=== PATIENT | female | born 1985 | race Caucasian/White ===

== ENCOUNTER 2017-11-30 16:30 | Emergency (ER) | payer OTHER ==
[2017-11-30 17:49] VITALS: BP 122/88
--- NOTE | 2017-11-30 18:25 | RAD ---
INDICATION: RIGHT elbow pain post fall. COMPARISON: No relevant prior exams available on the [facility] for comparison. TECHNIQUE: AP, lateral, and oblique views RIGHT elbow. REPORT AND IMPRESSION: #. Normal articular alignment and preserved joint spaces. Negative for joint effusion. No cortical disruption or suspicious trabecular irregularity to suggest fracture. Mild dorsal soft tissue swelling at the proximal forearm. .
--- NOTE | 2017-11-30 18:27 | UC ---
Elbow Pain - HPI Summary HPI Summary: Pt reports that she was on a hover board today at ~ 12:30 and fell onto right elbow with elbow bent at 90 degree angle - History of Current Complaint Chief Complaint: UCUpperExtremity Stated Complaint: RT ELBOW INJURY Time Seen by Provider: 11/30/17 18:00 Hx Obtained From: Patient ?: No Onset/Duration: Traumatic - fell from height of 4 inches from standing position Severity Initially: Severe Severity Currently: Moderate Pain Intensity: 9 Location Of Pain: Is Discrete @ - right elbow Character: Dull, Aching Aggravating Factor(s): Movement Alleviating Factor(s): Rest, Ice Associated Signs And Symptoms: Positive: Swelling, Bruising - Allergies/Home Medications Allergies/Adverse Reactions: Allergies Allergy/AdvReac Type Severity Reaction Status Date / Time No Known Allergies Allergy Verified 06/02/15 10:12 Home Medications: Home Medications Escitalopram Oxalate [Lexapro] 5 mg PO DAILY 11/30/17 [History Confirmed ] PMH/Surg Hx/FS Hx/Imm Hx Previously Healthy: Yes - Surgical History Surgical History: Yes Surgery Procedure, Year, and Place: 2007 TONSILLECTOMY, [place]. 2007 WISDOM TEETH EXTRACTION, [place]. 2012 [place] RIGHT FEMUR, [place] R/T [facility], [facility]. 03/2015 RIGHT ANKLE ORIF, [facility] - Family History Known Family History: Positive: Cardiac Disease - Social History Occupation: Employed Full-time Lives: With Family Alcohol Use: Rare Alcohol Amount: 1-2 Q3-4 MONTHS Substance Use Type: None Smoking Status (MU): Heavy Every Day Tobacco Smoker Type: Cigarettes Amount Used/How Often: 1 PPD Length of Time of Smoking/Using Tobacco: 10 YEARS Have You Smoked in the Last Year: No When Did the Patient Quit Smoking/Using Tobacco: 2013 Review of Systems Constitutional: Negative Skin: Bruising Eyes: Negative ENT: Negative Respiratory: Negative Cardiovascular: Negative Gastrointestinal: Negative Genitourinary: Negative Motor: Decreased ROM - right elbow Neurovascular: Negative Musculoskeletal: Arthralgia, Myalgia - right elbow Neurological: Negative Psychological: Negative Is Patient Immunocompromised?: No All Other Systems Reviewed And Are Negative: Yes Physical Exam Triage Information Reviewed: Yes Appearance: Well-Appearing Vital Signs: Initial Vital Signs Temp 98.8 F 11/30/17 17:43 Pulse 110 11/30/17 17:43 Resp 16 07/11/18 17:43 BP 122/88 11/30/17 17:43 Pulse Ox 99 11/30/17 17:43 Vital Signs Reviewed: Yes Eye Exam: Normal ENT Exam: Normal Neck exam: Normal Respiratory: Positive: No respiratory distress Musculoskeletal Exam: Other Musculoskeletal: Positive: ROM Limited @ - right elbow Neurological Exam: Normal Psychological Exam: Normal Skin Exam: Other - scattered bruises on right forearm and elbow Diagnostics - Radiology No standard instances Radiology Interpretation Completed By: Radiologist - REPORT AND IMPRESSION: #. Normal articular alignment and preserved joint spaces. Negative for joint effusion. No cortical disruption or suspicious trabecular irregularity to suggest fracture. Mild dorsal soft tissue swelling at the proximal forearm. Elbow Pain Course/Dx - Differential Dx/Diagnosis Differential Diagnosis/HQI/PQRI: Contusion, Fracture (Closed) Provider Diagnoses: right elbow contusion Discharge - Sign-Out/Discharge Documenting (check all that apply): Patient Departure - Discharge Plan Condition: Stable Disposition: HOME Patient Education Materials: Contusion in Adults (ED) Referrals: Kemal ARRIAGA,Linette Rubio [Primary Care Provider] - If Needed Tom Beavers MD [Medical Doctor] - If Needed - Billing Disposition and Condition Condition: STABLE Disposition: Home
== END 2017-11-30 18:33 | disposition home or self-care (01) ==
LOC: UCCORT 16:30
DX: S50.01XA Contusion of right elbow, initial encounter (principal); S50.11XA Contusion of right forearm, initial encounter; W17.89XA Other fall from one level to another, initial encounter; Y93.89 Activity, other specified; Y92.9 Unspecified place or not applicable; Z82.49 Family history of ischemic heart disease and other diseases of the circulatory system; F17.210 Nicotine dependence, cigarettes, uncomplicated
CPT/HCPCS: 99212; G0463

== ENCOUNTER 2019-03-31 09:05 | Emergency (ER) | payer OTHER ==
--- OUTSIDE RECORDS SUMMARY | 2019-03-31 09:11 | XMS REPORT | Continuity of Care Document ---
:1985 External Reference #:[id number] Author Name Linette Sommer MD Address [address] [place] [id number] Problems Description No Active Problems Social History Type Date Description Comments Sex Unknown Tobacco Use Start: Unknown currently smokes 1/2 Pack Daily ETOH Use Occasionally consumes alcohol Recreational Drug Use Formerly used Marijuana sporadically Allergies, Adverse Reactions, Alerts Description No Known Drug Allergies Medications Active Medications SIG Qnty Indications Ordering Date Provider Cefuroxime Axetil 1 by mouth twice 20tabs Linette Sommer 03/30/2019 250mg a day MD Leslye Tablets Albuterol Sulfate 1 as directed as 75ml Linette Sommer 10/10/2018 directed richard Gavin MD (2.5mg/3ML) 0.083% q4hr as needed Nebulizer sob or wheezing Sertraline HCL 1 tablet by mouth 90tabs F43.23 Linette Sommer 02/24/2017 50mg every night at MD Leslye Tablets bedtime Alprazolam 1/2 - 1 tab by 45tabs F43.23 Linette Sommer 02/24/2017 0.5mg Tablets mouth three times MD Leslye a day as needed anxiety Ventolin HFA inhale two puffs 1units Linette Sommer 06/20/2015 108(90Base) by mouth every MD Leslye mcg/Act Aerosol four hours as needed Acidophilus 1 tab po bid Unknown Lactobacillus 10Bu/GM Powder Immunizations CPT Code Status Date Vaccine Lot # [id number] Given 04/07/2017 Influenza Vac, Quadrivalent, Split, 0.5mL Dosage, [id number] Im Use 06285 Given 02/28/2015 Influenza Vac, Quadrivalent, Split, 0.5mL Dosage, [id number] Im Use 30513 Given 09/07/2012 Tdap (Adacel) Ages 7 And Above Only [id number] Given 04/29/2009 Influenza Virus Vaccine Pandemic Formulation - [id number] Given 04/29/2009 Afluria Or Fluvirin Flu Vac Intramuscular [id number] 12931 Given 04/29/2009 Administration Swine Flu Vaccine [id number] Vital Signs Date Vital Result Comment 03/30/2019 11:50am Body Temperature 97.5 F Weight 114.00 lb Heart Rate 92 /min BP Systolic 96 mmHg BP Diastolic 54 mmHg 12/25/2018 10:31am Body Temperature 98.0 F Weight 124.00 lb Heart Rate 94 /min BP Systolic 110 mmHg BP Diastolic 78 mmHg Results Test Acquired Date Facility Test Result H/L Range Note Laboratory test 03/30/2019 [facility] <pending> finding Culture Laboratory test 02/01/2019 [facility] Urine HCG NEGATIVE Negative 1, 2 finding (315)- - (Qualitativ e) CBS W/Automated 12/21/2018 [facility] White Blood 8.5 K/ uL Normal 3.1-10.7 3 Diff (315)- - Count Red Blood Count 4.25 M/uL Normal 3.90-5.40 Hemoglobin 13.7 gm/dL Normal 11.6-15.8 Hematocrit 39.5 % Normal 36.0-46.1 Mean Cell Volume 92.9 fl Normal 80.9-99.0 Mean Corpuscular HGB 32.2 pg Normal 25.9-32.7 Mean Corpuscular HGB Conc 34.7 g/dL High 30.8-34.3 Platelet Count 283 K/uL Normal 155-360 Red Cell Distri Width SD 42.4 fl Normal 36-47 Red Cell Distri Width %CV 12.3 % Normal 11.7-14.4 Mean Platelet Volume 9.1 fl Normal 8.9-12.4 Neut% 59.4 % Normal 40.4-72.8 Lymph % 30.9 % Normal 20.0-42.0 [place] % 5.9 % Normal 4.3-13.2 Eo% 2.8 % Normal 0.0-6.6 Bas% 0.6 % Normal 0.0-1.1 Immature Grans 0.4 % Normal 0.0-5.0 NRBC % 0.0 /100WBC < 10/ 100 WBC Neut# 5.05 K/uL Normal 1.8-7.0 Lymph # 2.63 K/uL Normal 1.0-4.0 [place] # 0.50 K/uL Normal 0.3-0.9 Eos # 0.24 K/uL Normal 0.0-0.5 Baso # 0.05 K/uL Normal 0.0-0.1 Immature Grans Absolute 0.03 K/uL NRBC # 0.00 K/uL Ua RFX Micro & 12/21/2018 [facility] Urine Color YELLOW Yellow Culture II (315)- - Urine Clarity CLEAR Clear Urine Glucose - Dipstick NEGATIVE mg/dL Negative Urine Bilirubin - Dipstick NEGATIVE Negative Urine Ketone NEGATIVE mg/dL Negative Urine Specific Welch 1.025 Normal 1.010-1.030 Urine Blood NEGATIVE Negative Urine PH 5.5 Low 6.5-7.5 Urine Protein - Dipstick NEGATIVE mg/dL Negative Urine Urobilinogen - Dipstick 0.2 E.U./dL Normal 0.2-1.0 Urine Nitrite - Dipstick NEGATIVE Negative Urine Leuk Esterase NEGATIVE Negative Source: URINE, CLEAN CAT <SEE NOTE> 4 CBC with Auto Diff-fcmg 12/20/2018 [facility] WBC 7.5 10*3/uL (4.1- 11.0) [phone] RBC 4.59 10*6/uL (4.00-5.40) HGB 14.5 g/dL (12.0-16.0) HCT 42.3 % (36.0-47.0) MCV 92.1 fL (80.0-95.0) MCH 31.6 pg (27.0-32.0) MCHC 34.3 g/dL (32.0-36.0) RDW 12.5 % (10.5-14.5) PLT 315 10*3/uL (150-450) MPV 8.1 fL (7.1-10.7) Neut % 41.6 % (35.0-75.0) Lymph % 45.1 % (16.0-52.0) [place] % 7.8 % (0.0-8.0) Eos % 4.6 % (0.0-5.0) Baso % 0.9 % (0.0-4.0) Neut # 3.1 10*3/uL (1.8-7.7) Lymph # 3.4 10*3/uL (1.2-4.8) [place] # 0.6 10*3/uL (0.0-0.8) Eos # 0.3 10*3/uL (0.0-0.5) Baso # 0.1 10*3/uL (0.0-0.2) Lyme Igm/Igg AB -RL 09/28/2018 [facility] Lyme Igm/Igg AB @ NEGATIVE (Neg) 5 1 CONSULT 01/18/19 1230 2 FIRST MORNING SPECIMENS GENERALLY CONTAIN THE HIGHEST CONCENTRATION OF HCG AND ARE RECOMMENDED FOR EARLY DETECTION OF . Method: Quidel QuickVue One-Step Immunoassay 3 POSS APPENDICITIS 4 URINE, CLEAN CATCH 5 A Negative serologic test for Lyme Disease indicates no serologic evidence of infection with B burgdorferi at the time this specimen was collected. A repeat specimen should be collected in 2 to 4 weeks if clinically indicated. Unless otherwise specified, testing performed by [facility] [address] [place] [address] Procedures Description No Information Available Medical Devices Description No Information Available Encounters Type Date Location Provider Dx Diagnosis Office Visit 12/25/[address] K80.11 Calculus of 10:00a MD Leslye gallbladder w chronic cholecyst w obstruction Office Visit 12/20/[address] F43.23 Adjustment disorder 3:45p MD Leslye with mixed anxiety and depressed mood R10.31 RIGHT lower quadrant pain Office Visit 09/28/2018 9:45a Linette Galeana DR, G40.89 Other seizures Assessments Date Code Description Provider 03/30/2019 J02.9 Acute pharyngitis, unspecified Linette Sommer MD 03/30/2019 R63.4 Abnormal weight loss Linette Sommer MD 12/25/2018 K80.11 Calculus of gallbladder with chronic Linette Somemr MD cholecystitis with obstruction 12/20/2018 F43.23 Adjustment disorder with mixed anxiety and Linette Sommer MD depressed mood 12/20/2018 R10.31 RIGHT lower quadrant pain Linette Sommer MD 09/28/2018 G40.89 Other seizures Linette Sommer MD Plan of Treatment Future Appointment(s):05/02/2019 11:15 am - Linette Sommer MD at [facility]03/30/2019 - Linette Sommer MDJ02.9 Acute pharyngitis, unspecifiedComments :Rapid strep is negative. Patient to start the prescribed antibiotics. Patient to have the throat culture done to further evaluate her symptoms. Call if symptoms are worsening or not improving over thenext 3-4 days or not completely better in 1 week. Tylenol as needed for pain. Rest and push couhydA15.4 Abnormal weight lossComments:she is still loosing weight since her cholecystectomy. I am concerned. Prior urine drug screen was unremarkable. She denies anorexia/bulimia. Will recheck in 1 monthAllNew Medication: Cefuroxime Axetil 250 mg - 1 by mouth twice a day Functional Status Description No Information Available Mental Status Description No Information Available Referrals Refer to Reason for Referral Status Appt Date Jannette Rain, PHD Scheduled 01/23/[address] [place] [id number]
--- OUTSIDE RECORDS SUMMARY | 2019-03-31 09:11 | XMS REPORT | Continuity of Care Document ---
:1985 External Reference #:[id number] Author Name Nehemiah Cortez MD,FACS Address [address] [place] [id number] Care Team Providers Name Role Phone Linette Sommer MD - Family Medicine Care Team Information Professor Of Literature Problems Active Problems Provider Date Gallbladder calculus with acute Nehemiah Cortez MD,FACS Onset: 02/09/2019 cholecystitis and no obstruction Gallbladder and bile duct calculi Nehemiah Cortez MD,FACS Onset: 01/09/2019 Social History Type Date Description Comments Sex Unknown Tobacco Use Start: Unknown Patient is a current smoker, smokes every day Smoking Status Reviewed: 01/09/19 Patient is a current smoker, smokes every day Allergies, Adverse Reactions, Alerts Description No Known Drug Allergies Medications Active Medications SIG Qnty Indications Ordering Provider Date Alprazolam Take 1 2 To 1 Unknown 0.5mg Tablet By Mouth Tablets Three Times A Day as Needed For Anxiety Maximum Daily Dose 3 Sertraline HCL Linette Sommer, 50mg MD Tablets Albuterol Sulfate HFA Inhale Two Puffs Unknown By Mouth Every 6 108(90Base) mcg/Act Hours as Needed Aerosol For Wheezing Immunizations Description No Information Available Vital Signs Date Vital Result Comment 02/09/2019 10:28am BP Systolic 128 mmHg BP Diastolic 64 mmHg Heart Rate 88 /min Height 68 inches 5'8" Weight 121.12 lb BMI (Body Mass Index) 18.4 kg/m2 BSA (Body Surface Area) 1.65 m2 [place] body weight in kilograms 63 kg 01/09/2019 9:27am BP Systolic 110 mmHg BP Diastolic 76 mmHg Heart Rate 77 /min Weight 131.25 lb O2 % BldC Oximetry 99 % Results Test Date Facility Test Result H/L Range Note Laboratory test 02/01/2019 [facility] Urine HCG NEGATIVE Negative 1, [address] (Qualitative) [place] [address] [phone] Aot Request 12/22/2018 [facility] Aot Request Test(s) added 3, [address] [place], [place] [id number] [phone] Tests to be added: lipase Instructions: ad to this morni <SEE NOTE> 5 CBC W/Automated 12/22/2018 [facility] White Blood 6.5 K/uL Normal 3.1-10.[address] [place] [address] [phone] Red Blood Count 3.74 M/uL Low 3.90-5.40 Hemoglobin 12.0 gm/dL Normal 11.6-15.8 Hematocrit 34.7 % Low 36.0-46.1 Mean Cell Volume 92.8 fl Normal 80.9-99.0 Mean Corpuscular HGB 32.1 pg Normal 25.9-32.7 Mean Corpuscular HGB Conc 34.6 g/dL High 30.8-34.3 Platelet Count 249 K/uL Normal 155-360 Red Cell Distri Width SD 41.4 fl Normal 36-47 Red Cell Distri Width %CV 12.3 % Normal 11.7-14.4 Mean Platelet Volume 9.4 fl Normal 8.9-12.4 Neut% 40.5 % Normal 40.4-72.8 Lymph % 44.2 % High 20.0-42.0 [place] % 8.8 % Normal 4.3-13.2 Eo% 5.5 % Normal 0.0-6.6 Bas% 0.8 % Normal 0.0-1.1 Immature Grans 0.2 % Normal 0.0-5.0 NRBC % 0.0 /100WBC < 10/ 100 WBC Neut# 2.63 K/uL Normal 1.8-7.0 Lymph # 2.87 K/uL Normal 1.0-4.0 [place] # 0.57 K/uL Normal 0.3-0.9 Eos # 0.36 K/uL Normal 0.0-0.5 Baso # 0.05 K/uL Normal 0.0-0.1 Immature Grans Absolute 0.01 K/uL NRBC # 0.00 K/uL Comprehensive 12/22/2018 [facility] Glucose 87 mg/dL Normal 74-106 Metabolic Panel [address] [place] [address] [phone] BUN 6 mg/dL Low 7-18 Creatinine 0.6 mg/dL Normal 0.6-1.3 Glom Filtration Rate, Estimate >60 mL/min >60 If >60 mL/min >60 6 BUN/Creat 10.0 ratio Sodium 141 mmol/L Normal 136-145 Potassium 3.8 mmol/L Normal 3.5-5.1 Chloride 110 mmol/L High 98-107 Carbon Dioxide 25 mmol/L Normal 21-32 Anion Gap 6 mEq/L Low 8-16 Calcium 8.5 mg/dL Normal 8.5-10.1 Total Protein 5.9 g/dL Low 6.4-8.2 Albumin 3.0 g/dL Low 3.4-5.0 Globulin 2.9 g/dL Normal 1.9-4.3 Alb/Glob 1.0 ratio Bilirubin,Total 0.9 mg/dL Normal 0.2-1.0 Sgot/Ast 20 U/L Normal 15-37 SGPT/Alt 47 U/L Normal 12-78 Alkaline Phosphatase 64 U/L Normal 45-117 Laboratory test 12/22/2018 [facility] Magnesium 2.1 mg/dL Normal 1.8-2.4 finding [address] [place] [address] [phone] C-Reactive Protein,Quant 12.6 mg/L High <3.0 Lipase 596 U/L High 56-289 1 CONSULT 01/18/19 1230 2 FIRST MORNING SPECIMENS GENERALLY CONTAIN THE HIGHEST CONCENTRATION OF HCG AND ARE RECOMMENDED FOR EARLY DETECTION OF . Method: Quidel QuickVue One-Step Immunoassay 3 CHOLEDOCHOLITHIASIS RUQ PAIN 4 Tests: lipase Instructions: ad to this morning labs please 5 ad to this morning labs please 6 Note: Persistent reduction for 3 months or more in an eGFR <60 mL/min/1.73 m2 defines CKD. Patients with eGFR values >/=60 mL/min/1.73 m2 may also have CKD if evidence of persistent proteinuria is present. The original MDRD equation for estimated GFR is not valid for patients less than 18 years of age. Additional information may be found at www.kdoqi.org. Procedures Date Code Description Status 02/01/2019 05241 Cholecystectomy with cholangiography Completed 12/21/2018 02996 Ercp W/ Placement Endoscopic Stent Biliary/Pancreatic Duct Completed Medical Devices Description No Information Available Encounters Type Date Location Provider Dx Diagnosis Office Visit 01/09/2019 Surgical Office Nehemiah Cortez, K80.70 Calculus of GB and 9:00a DAMIEN ARRIAGA bile duct w/o cholecyst w/o obstruction Assessments Date Code Description Provider 02/09/2019 K80.64 Calculus of gallbladder and bile duct with Nehemiah Cortez MD, FACS chronic cholecystitis without obstruction 02/01/2019 K80.64 Calculus of gallbladder and bile duct with Nehemiah Cortez MD, FACS chronic cholecystitis without obstruction 01/09/2019 K80.70 Calculus of gallbladder and bile duct Nehemiah Cortez MD, FACS without cholecystitis without obstruction 12/22/2018 R93.5 Abnormal findings on diagnostic imaging of Nehemiah Cortez MD, FACS other abdominal regions, including retroperitoneum 12/22/2018 R10.11 Right upper quadrant pain Audelia Brewer M.D. 12/22/2018 K80.50 Calculus of bile duct without cholangitis Nehemiah Cortez MD, FACS or cholecystitis without obstruction 12/22/2018 K80.50 Calculus of bile duct without cholangitis Audelia Brewer M.D. or cholecystitis without obstruction 12/22/2018 R10.11 Right upper quadrant pain Nehemiah Cortez MD, FACS 12/22/2018 R93.5 Abnormal findings on diagnostic imaging of Audelia Brewer M.D. other abdominal regions, including retroperitoneum 12/22/2018 R11.2 Nausea with vomiting, unspecified Nehemiah Cortez MD, FACS 12/22/2018 R11.2 Nausea with vomiting, unspecified Audelia Brewer M.D. 12/21/2018 R93.5 Abnormal findings on diagnostic imaging of Nehemiah Cortez MD, FACS other abdominal regions, including retroperitoneum 12/21/2018 R10.11 Right upper quadrant pain Audelia Brewer M.D. 12/21/2018 K80.70 Calculus of gallbladder and bile duct Antonio, Marco Antonio, MD without cholecystitis without obstruction 12/21/2018 K80.50 Calculus of bile duct without cholangitis Nehemiah Cortez MD,FACS or cholecystitis without obstruction 12/21/2018 K80.50 Calculus of bile duct without cholangitis Audelia Brewer M.D. or cholecystitis without obstruction 12/21/2018 R10.11 Right upper quadrant pain Nehemiah Cortez MD,FACS 12/21/2018 R93.5 Abnormal findings on diagnostic imaging of Audelia Brewer M.D. other abdominal regions, including retroperitoneum 12/21/2018 R11.2 Nausea with vomiting, unspecified Nehemiah Cortez MD,FACS 12/21/2018 R11.2 Nausea with vomiting, unspecified Audelia Brewer M.D. Plan of Treatment 02/09/2019 - Nehemiah Cortez MD,FACSK80.64 Calculus of gallbladder and bile duct with chronic cholecystitis without obstructionComments:s/p cholecystectomy doing well. RTC prn. she will need to follow up with GI for stent removal Functional Status Description No Information Available Mental Status Description No Information Available Referrals Description No Information Available
[2019-03-31] MEDS ORDERED: Albuterol 2.5 MG/3 ML NEB.SOL* (0.083%) INH ONE (09:23)
[2019-03-31 09:29] VITALS: BP 115/80
--- NOTE | 2019-03-31 09:31 | UC ---
Respiratory Complaint HPI - HPI Summary HPI Summary: Patient is a 33 year old female with a past medical history of asthma, who present today to the urgent care with wheezing. She reports having sinus and chest congestion this week. She went to her PCP yesterday, rapid strep was negative and throat culture was sent out. Pt put on an antibiotic(cefuroxime). Pt states that her throat is tender, and when she tries to swallow she spits it back up. Pt wheezing and feels like she is suffocating because she can't move air well.. She also reports losing her voice, denies any fevers or chills. - History of Current Complaint Chief Complaint: UCRespiratory Stated Complaint: ST,WHEEZY Time Seen by Provider: 03/31/19 09:22 Hx Obtained From: Patient Hx Last Menstrual Period: January Pain Intensity: 0 - Allergies/Home Medications Allergies/Adverse Reactions: Allergies Allergy/AdvReac Type Severity Reaction Status Date / Time No Known Allergies Allergy Verified 03/31/19 09:29 Home Medications: Home Medications Albuterol 0.5% CONC NEB.ROBERTO* 1 inh INH ONCE 03/31/19 [History Confirmed 03/31/19 ] cefUROXime axetil [Cefuroxime] 1 tab PO BID 03/31/19 [History Confirmed 03/31/19 ] PMH/Surg Hx/FS Hx/Imm Hx - Additional Past Medical History Additional PMH: Past Medical History : Asthma, anxiety Past Surgical History: 2007 TONSILLECTOMY, JOY 2007 WISDOM TEETH EXTRACTION, JOY2012 [place] RIGHT FEMUR, [place] IN PELVIS R/T [facility] [place], [facility] 03/2015 RIGHT ANKLE ORIF, [facility] Family History : non contributory Social History : Occasional alcohol, current daily smoker, marijuana use Lives with family . Previously Healthy: Yes - Surgical History Surgical History: Yes Surgery Procedure, Year, and Place: 2007 TONSILLECTOMY, JOY. 2007 WISDOM TEETH EXTRACTION, JOY. 2012 [place] RIGHT FEMUR, [place] IN PELVIS R/T [facility] [place], [facility]. 03/2015 RIGHT ANKLE ORIF, [facility] - Family History Known Family History: Positive: Cardiac Disease, Non-Contributory - Social History Alcohol Use: None Alcohol Amount: 1-2 Q3-4 MONTHS Substance Use Type: Marijuana Smoking Status (MU): Light Every Day Tobacco Smoker Type: Cigarettes Amount Used/How Often: 1/2 PPD Length of Time of Smoking/Using Tobacco: 10 YEARS Have You Smoked in the Last Year: No When Did the Patient Quit Smoking/Using Tobacco: 2013 Review of Systems All Other Systems Reviewed And Are Negative: Yes Constitutional: Positive: Chills, Fatigue. Negative: Fever Skin: Positive: Negative Eyes: Positive: Negative ENT: Positive: Sinus Congestion Respiratory: Positive: Shortness Of Breath, Cough, Other - Wheezing Cardiovascular: Positive: Negative. Negative: Chest Pain Gastrointestinal: Positive: Negative Genitourinary: Positive: Negative Motor: Positive: Negative Neurovascular: Positive: Negative Musculoskeletal: Positive: Negative Neurological: Positive: Negative Psychological: Positive: Negative Is Patient Immunocompromised?: No Physical Exam - Summary Physical Exam Summary: Physical Exam: Const: Appears well. No signs of apparent distress present. Alert and oriented x 3. Musculo: Walks with a normal gait. Head/Face: Atraumatic, normocephalic on inspection. Eyes: EOMI and PERRLA in both eyes. Conjunctivae clear. No discharge noted ENT: Hearing normal, TM normal appearing bilaterally,No tenderness to palpation on maxillary and frontal sinus. Minimal pharyngeal erythema without any exudates . Uvula is midline. No cervical or submandibular lymphadenopathy noted. Respiratory: Respirations are unlabored. Lungs clear to auscultation bilaterally, no more she had audible wheezing when she arrived wheezing(after giving the nebulizer- ) CVS: Regular rate and Rhythm, S1S2 normal , no murmurs identified. Extremities: Peripheral circulation is grossly normal. Pulses 2+ Abdomen : Soft non tender , nondistended , Bowel sounds present . No guarding , rebound tenderness or rigidity noted. Skin: No lesions or rash located on the upper extremities or on the lower extremities. Neuro: Cranial nerves II to XII intact, motor and sensory intact. DTR Intact bilaterally. Mood is normal. Affect is normal. Triage Information Reviewed: Yes Vital Signs: Initial Vital Signs Temp 98.6 F 03/31/19 09:24 Pulse 109 03/31/19 09:24 Resp 20 03/31/19 09:24 BP 115/80 03/31/19 09:24 Pulse Ox 100 03/31/19 09:24 Vital Signs Reviewed: Yes Respiratory Course/Dx - Course Course Of Treatment: With the visit today she was given 1 nebulizer treatment that made her feel much better and her lung exam did not demonstrate much wheezing. Suspect viral laryngitis with asthma exacerbation. She was given 1 dose of intramuscular Solu-Medrol here. She is feeling better and feels comfortable being discharged home - Differential Dx/Diagnosis Provider Diagnosis: Asthma exacerbation, Laryngitis Discharge ED - Sign-Out/Discharge Documenting (check all that apply): Patient Departure All imaging exams completed and their final reports reviewed: No - Discharge Plan Condition: Stable Disposition: HOME Prescriptions: predniSONE [Prednisone 20 MG TAB] 60 mg PO DAILY 5 Days #15 tablet Patient Education Materials: Laryngitis (ED), Bronchospasm (ED) Referrals: Kemal ARRIAGA,Linette Rubio [Primary Care Provider] - 1 Week Additional Instructions: Continue taking your antibiotics as has been prescribed by her primary care doctor . Throat lozenges will be helpful Voice rest Please start taking the medication as prescribed to the pharmacy . Continue your albuterol inhaler/nebulizer at home every 4-6 hours as needed Follow up with your primary care doctor in 1 week Return to Urgent care / ER if symptoms get worse. - Billing Disposition and Condition Condition: STABLE Disposition: Home
[2019-03-31] MEDS ORDERED: methylPREDNISolone 125 MG* 2 ML VIAL IM ONE (09:55)
== END 2019-03-31 10:34 | disposition home or self-care (01) ==
LOC: UCCORT 09:05
DX: J45.901 Unspecified asthma with (acute) exacerbation (principal); J04.0 Acute laryngitis; J34.89 Other specified disorders of nose and nasal sinuses; R53.83 Other fatigue; F17.210 Nicotine dependence, cigarettes, uncomplicated; Z79.899 Other long term (current) drug therapy
CPT/HCPCS: 96372; 99212; G0463; J2930